=== PATIENT | female | born 1985 | race Caucasian/White ===

== ENCOUNTER 2018-04-17 14:38 | Emergency (ER) | payer OTHER ==
[~2018-04-17] VITALS: Ht 170.2 cm; Wt 75.0 kg
[2018-04-17 14:43] VITALS: BP 114/59; TEMP 98
[2018-04-17] MEDS ORDERED: AMOXICILLIN 8751 TAB PO (15:24)
[2018-04-17 16:13] VITALS: PULSE 68
== END 2018-04-17 16:13 | disposition home or self-care (01) ==
LOC: COL.ER 14:38
DX: S61.051A Open bite of right thumb without damage to nail, initial encounter (principal); W55.81XA Bitten by other mammals, initial encounter; Y92.009 Unspecified place in unspecified non-institutional (private) residence as the place of occurrence of the external cause

== ENCOUNTER 2018-05-01 21:26 | Outpatient (RCR) | payer OTHER ==
[~2018-05-01 21:26] MED LIST: AMOXICILLIN 8751 TAB PO
[2018-05-01 21:31] VITALS: BP 98/61; PULSE 73; TEMP 98.4
== END 2018-07-19 | disposition home or self-care (01) ==
LOC: COL.ER
DX: Z20.3 Contact with and (suspected) exposure to rabies (principal); Z23 Encounter for immunization